=== PATIENT | female | born 1960 | race African-American/Black ===

== ENCOUNTER 2016-05-12 06:56 | Observation (INO) | payer OTHER ==
[~2016-05-12] VITALS: Ht 152.4 cm; Wt 90.0 kg
[2016-05-12] VITALS (10 sets, daily range): BP systolic 131–197; BP diastolic 77–93; PULSE 66–90; RESP 15–21; TEMP 96.7–98; O2SAT 95–99
[~2016-05-12 06:56] MED LIST: AMLO5TAB22 PO; OMEP20TA39 PO; PERC10TA27 PO; TRAZ100 PO
[2016-05-12] MEDS ORDERED: SODIUM CHLORIDE 0.9% FLUSH 5 ML FLUSH IVF PRN ×2 (07:30→11:30)
[2016-05-12] MEDS ORDERED: MORPHINE SULFATE 4 MG/ML INJ IV PUSH ONE (07:30)
[2016-05-12] MEDS ORDERED: ASPIRIN 81 MG CHEW TAB PO ONE (07:30)
[2016-05-12 07:45] LABS: AUTOMATED NEUTROPHIL # 4.4 TH/MM3 (1.8-7.7); BASOPHIL % 0.5 % (0.0-2.0); EOSINOPHIL # 0.1 TH/MM3 (0-0.4); EOSINOPHIL % 1.3 % (0.0-4.0); HEMATOCRIT 36.3 % (35.0-46.0); HEMO FLAGS DIFF FINAL; LYMPH % 24.4 % (9.0-44.0); LYMPHOCYTE # 1.6 TH/MM3 (1.0-4.8); MEAN CELL VOLUME 83.2 FL (80.0-100.0); MEAN CORPUSCULAR HEMOGLOBIN 26.5 PG (27.0-34.0); MEAN CORPUSCULAR HGB CONC 31.8 % (32.0-36.0); MONO % 7.2 % (0.0-8.0); NEUT % 66.6 % (16.0-70.0); PLATELET COUNT 205 TH/MM3 (150-450); RED BLOOD COUNT 4.36 MIL/MM3 (4.00-5.30); RED CELL DISTRIBUTION WIDTH 14.7 % (11.6-17.2); WHITE BLOOD COUNT 6.6 TH/MM3 (4.0-11.0)
[2016-05-12 08:04] LABS: APTT (PATIENT) 22.4 SEC (24.3-30.1); INTERNATIONAL NORMALIZED RATIO 0.9 RATIO; PROTHROMBIN TIME - PATIENT 10.1 SEC (9.8-11.6)
[2016-05-12 08:09] LABS: ALKALINE PHOSPHATASE 124 U/L (45-117); CREATINE KINASE 210 U/L (26-192); TOTAL BILIRUBIN ADULT 0.3 MG/DL (0.2-1.0)
[2016-05-12 08:14] LABS: ALT (GPT) 20 U/L (10-53); ANION GAP 9 MEQ/L (5-15); AST (GOT) 15 U/L (15-37); BICARBONATE 25.5 MEQ/L (21.0-32.0); BLOOD UREA NITROGEN 21 MG/DL (7-18); CHLORIDE 106 MEQ/L (98-107); GLOMERULAR FILTRATION RATE 85 ML/MIN (>89); MAGNESIUM 2.2 MG/DL (1.5-2.5); POTASSIUM 3.8 MEQ/L (3.5-5.1); SODIUM (NA) 140 MEQ/L (136-145)
[2016-05-12 08:46] LABS: CKMB 2.3 NG/ML (0.5-3.6)
--- NOTE | 2016-05-12 08:58 | RADRPT ---
EXAM DATE/TIME: 05/12/2016 07:58 [facility] COMPARISON: CHEST SINGLE AP, May 21, 2015, 6:51. INDICATIONS : Chest pain. MEDICAL HISTORY : Carcinoma, breast. SURGICAL HISTORY : Left lumpectomy. ENCOUNTER: Initial ACUITY: 1 day PAIN SCORE: 9/10 LOCATION: middle chest. FINDINGS: PA and lateral views of the chest demonstrate the lungs to be symmetrically aerated without evidence of mass, infiltrate or effusion. The cardiomediastinal contours are unremarkable. Osseous structure s are intact. CONCLUSION: 1. No acute cardiopulmonary findings. Alexis Willett MD on May 12, 2016 at 8:56 Board Certified Radiologist. This report was verified electronically.
--- NOTE | 2016-05-12 09:28 | PD ---
HPI Chief Complaint: Chest Pain Time Seen by Provider: 07:15 Travel History International Travel<30 days: No Contact w/Intl Traveler<30days: No Traveled to known affect area: No History of Present Illness HPI Patient is a 55-year-old female who comes in complaining of an episode of chest pain earlier this morning. She says she was not doing anything strenuous when the pain came on. She localizes the pain to the center of her chest and says it feels like a heaviness. She denies any shortness of breath at the time. She denies any leg swelling or pain. She denies headache or dizziness. PFSH Past Medical History Arthritis: Yes Cancer: Yes (HX BREAST CA- IN REMISSION SINCE 2013 ) High Cholesterol: Yes Diminished Hearing: No GERD: Yes Hypertension: Yes Musculoskeletal: Yes (ANKYLOSING SPONDYLITIS) Radiation Therapy: Yes (HISTORY ) ?: Not Menopausal: Yes : 6 Para: 4 : 2 Past Surgical History Abdominal Surgery: Yes (PART OF LARGE INTESTINE REMOVED) Hysterectomy: Yes Other Surgery: Yes (BILAT PLANTAR FASCIOTOMY; R ANKLE) Social History Alcohol Use: No Tobacco Use: No Substance Use: No Allergies-Medications (Allergen,Severity, Reaction): Coded Allergies: No Known Allergies (Unverified , 05/12/16) Reported Meds & Prescriptions Reported Meds & Active Scripts Active Reported Chlorthalidone 25 Mg Tab 25 Mg PO BID Sertraline (Sertraline HCl) 100 Mg Tab 100 Mg PO DAILY Folate (Folic Acid) 1 Mg Tab 1 Mg PO DAILY Losartan (Losartan Potassium) 25 Mg Tab 25 Mg PO DAILY Oxycodone-Acetaminophen 10-325 mg Tab 0.5-1 Tab PO Q8HR PRN Sulfasalazine 500 Mg Tab 1,000 Mg PO BID Pravastatin 40 Mg Tab 40 Mg PO DAILY Trazodone (Trazodone HCl) 100 Mg Tab 200 Mg PO HS Omeprazole 20 Mg Tab 20 Mg PO DAILY Amlodipine (Amlodipine Besylate) 5 Mg Tab 5 Mg PO DAILY Review of Systems Except as stated in HPI: all other systems reviewed are Neg General / Constitutional: No: Fever, Chills Eyes: No: Blurred Vision HENT: No: Headaches, Lightheadedness Cardiovascular: Positive: Chest Pain or Discomfort Respiratory: No: Cough, Shortness of Breath Gastrointestinal: No: Nausea, Vomiting Musculoskeletal: No: Edema Skin: No Rash, No Change in Pigmentation Neurologic: No: Weakness, Dizziness Physical Exam Narrative GENERAL: Awake and alert in no acute distress. SKIN: Warm and dry. HEAD: Atraumatic. Normocephalic. EYES: Pupils equal and round. No scleral icterus. ENT: Mucous membranes pink and moist. NECK: Trachea midline. No JVD. CARDIOVASCULAR: Regular rate and rhythm. No murmur appreciated. RESPIRATORY: No accessory muscle use. Clear to auscultation. Breath sounds equal bilaterally. GASTROINTESTINAL: Abdomen soft, non-tender, nondistended. MUSCULOSKELETAL: No obvious deformities. No clubbing. No cyanosis. No edema. NEUROLOGICAL: Awake and alert. No obvious cranial nerve deficits. Motor grossly within normal limits. Normal speech. PSYCHIATRIC: Appropriate mood and affect; insight and judgment normal. Data Data Last Documented VS Vital Signs Date Time Temp Pulse Resp B/P Pulse Ox O2 Delivery O2 Flow Rate FiO2 05/12/16 08:45 74 15 188/93 96 Nasal Cannula 2 05/12/16 07:02 97.9 Orders B-Type Natriuretic Peptide (05/12/16 07:22) Ckmb (Isoenzyme) Profile (05/12/16 07:22) Complete Blood Count With Diff (05/12/16 07:22) Comprehensive Metabolic Panel (05/12/16 07:22) Magnesium (Mg) (05/12/16 07:22) Prothrombin Time / Inr (Pt) (05/12/16 07:22) Act Partial Throm Time (Ptt) (05/12/16 07:22) Troponin I (05/12/16 07:22) Ecg Monitoring (05/12/16 07:22) Bilateral Bp Monitoring (05/12/16 07:22) Iv Access Insert/Monitor (05/12/16 07:22) Oximetry (05/12/16 07:22) Oxygen Administration (05/12/16 07:22) Aspirin Chew (Aspirin Chew) (05/12/16 07:30) Sodium Chloride 0.9% Flush (Ns Flush) (05/12/16 07:30) Chest, Pa & Lat (05/12/16 07:22) Morphine Inj (Morphine Inj) (05/12/16 07:30) CKMB (05/12/16 07:35) CKMB% (05/12/16 07:35) Admit Order (Ed Use Only) (05/12/16 ) Labs Laboratory Tests Test 05/12/16 07:35 White Blood Count 6.6 TH/MM3 Red Blood Count 4.36 MIL/MM3 Hemoglobin 11.6 GM/DL Hematocrit 36.3 % Mean Corpuscular Volume 83.2 FL Mean Corpuscular Hemoglobin 26.5 PG Mean Corpuscular Hemoglobin 31.8 % Concent Red Cell Distribution Width 14.7 % Platelet Count 205 TH/MM3 Mean Platelet Volume 8.3 FL Neutrophils (%) (Auto) 66.6 % Lymphocytes (%) (Auto) 24.4 % Monocytes (%) (Auto) 7.2 % Eosinophils (%) (Auto) 1.3 % Basophils (%) (Auto) 0.5 % Neutrophils # (Auto) 4.4 TH/MM3 Lymphocytes # (Auto) 1.6 TH/MM3 Monocytes # (Auto) 0.5 TH/MM3 Eosinophils # (Auto) 0.1 TH/MM3 Basophils # (Auto) 0.0 TH/MM3 CBC Comment DIFF FINAL Differential Comment Prothrombin Time 10.1 SEC Prothromb Time International 0.9 RATIO Ratio Activated Partial 22.4 SEC Thromboplast Time Sodium Level 140 MEQ/L Potassium Level 3.8 MEQ/L Chloride Level 106 MEQ/L Carbon Dioxide Level 25.5 MEQ/L Anion Gap 9 MEQ/L Blood Urea Nitrogen 21 MG/DL Creatinine 0.85 MG/DL Estimat Glomerular Filtration 85 ML/MIN Rate Random Glucose 88 MG/DL Calcium Level 8.6 MG/DL Magnesium Level 2.2 MG/DL Total Bilirubin 0.3 MG/DL Aspartate Amino Transf 15 U/L (AST/SGOT) Alanine Aminotransferase 20 U/L (ALT/SGPT) Alkaline Phosphatase 124 U/L Total Creatine Kinase 210 U/L Creatine Kinase MB 2.3 NG/ML Creatine Kinase MB % 1.1 % Troponin I LESS THAN 0.02 NG/ML B-Type Natriuretic Peptide 18 PG/ML Total Protein 7.6 GM/DL Albumin 3.2 GM/DL [facility] Medical Decision Making Medical Screen Exam Complete: Yes Emergency Medical Condition: Yes Medical Record Reviewed: Yes Interpretation(s) ECG shows NSR, no ST elevation or depression. Differential Diagnosis ACS, NSTEMI, STEMI Narrative Course Patient is a 55-year-old female who comes in complaining of chest pain. Exam shows no acute abnormalities. IV established, patient connected to quality assurance monitor. Patient given 162 mg of aspirin, she says she took it could be powder that might of had aspirin in it earlier today. Labs sent show no acute abnormalities. Chest x-ray shows no acute abnormalities. Patient will be placed in chest pain center for further management. Diagnosis Primary Impression: Atypical chest pain Admitting Information Admitting Physician Requests: Susana Chávez MD May 12, 2016 09:28
[2016-05-12] MEDS ORDERED: OMEP20TA PO (10:18)
[2016-05-12] MEDS ORDERED: AMLO5TAB2 PO (10:18)
[2016-05-12] MEDS ORDERED: TRAZ100T4 PO (10:18)
[2016-05-12] MEDS ORDERED: OXYC1TAB63 PO (10:18)
[2016-05-12] MEDS ORDERED: PRAV40TA2 PO (10:21)
[2016-05-12] MEDS ORDERED: FOLI5CAP PO (10:21)
[2016-05-12] MEDS ORDERED: SULF500T3 PO (10:21)
[2016-05-12] MEDS ORDERED: OXYC1TAB36 PO (11:28)
[2016-05-12] MEDS ORDERED: LOSA25TA PO (11:28)
[2016-05-12] MEDS ORDERED: ACETAMINOPHEN 500 MG CPLT PO PRN (11:30)
[2016-05-12] MEDS ORDERED: ONDANSETRON HCL 4 MG/2 ML VIAL IV PRN (11:30)
[2016-05-12] MEDS ORDERED: KETOROLAC TROMETHAMINE 30 MG/ML (IVP) VIAL IVP ONE (11:30)
[2016-05-12] MEDS ORDERED: SERT-129 PO (11:31)
[2016-05-12] MEDS ORDERED: CHLO25TA2 PO (11:31)
[2016-05-12] MEDS ORDERED: FOLI1TAB4 PO (11:31)
[2016-05-12] MEDS: PRAVASTATIN SOD 40 MG TAB PO SCH (11:52)
[2016-05-12] MEDS: PANTOPRAZOLE SOD 20 MG DELAYED RELEASE TAB PO SCH (11:52)
[2016-05-12] MEDS: amLODIPine BESYLATE 5 MG TAB PO SCH (11:52)
[2016-05-12] MEDS ORDERED: SODIUM CHLOR 0.9% 1000 ML INJ 1,000 ML IV SCH (11:54)
[2016-05-12] MEDS ORDERED: cloNIDine HCL 0.1 MG TAB PO PRN (12:00)
[2016-05-12] MEDS: NITROGLYCERIN 2% OINT 1 GM PACKET TOPICAL SCH ×2 (12:52→17:55)
[2016-05-12] MEDS ORDERED: LOSARTAN 25 MG TAB PO SCH (13:00)
[2016-05-12 14:24] LABS: CREATINE KINASE 175 U/L (26-192)
[2016-05-12] MEDS ORDERED: PILL SPLITTER OTHER PRN (14:30)
[2016-05-12 14:40] LABS: CKMB 2.2 NG/ML (0.5-3.6)
[2016-05-12] MEDS: CHLORTHALIDONE 50 MG TAB PO SCH (14:40)
--- NOTE | 2016-05-12 17:00 | EKG ---
Date Performed: 05/12/2016 Time Performed: 07:11:39 PTAGE: 55 years EKG: Sinus rhythm NORMAL ECG Since PREVIOUS TRACING , no significant change noted PREVIOUS TRACIN05/21/2015 06.39 DOCTOR: Kirsty Rosales Interpretating Date/Time 05/12/2016 16:58:08
[2016-05-12] MEDS: oxyCODONE/ACETAMINOPHEN 5 MG/325 MG TAB PO PRN (17:55)
[2016-05-12] MEDS: SODIUM CHLORIDE 0.9% FLUSH 5 ML FLUSH IVF SCH (21:00)
[2016-05-12] MEDS ORDERED: traZODone HCL 100 MG TAB PO SCH (21:00)
[2016-05-13] VITALS (9 sets, daily range): BP systolic 108–138; BP diastolic 61–78; PULSE 57–78; RESP 18–21; TEMP 96.4–98.3; O2SAT 97–98
[2016-05-13] MEDS: CHLORTHALIDONE 50 MG TAB PO SCH ×2 (00:40→10:29)
[2016-05-13] MEDS: NITROGLYCERIN 2% OINT 1 GM PACKET TOPICAL SCH ×2 (03:32)
[2016-05-13] MEDS: oxyCODONE/ACETAMINOPHEN 5 MG/325 MG TAB PO PRN ×2 (06:48→10:37)
--- NOTE | 2016-05-13 08:24 | MH ---
cc: CHRISTELLE ROSE MD DATE OF ADMISSION: 05/12/2016 DATE OF 1960 CHIEF COMPLAINT Chest pain. HISTORY OF PRESENT ILLNESS This is a 55-year-old female who presents to the ED with complaint of chest discomfort. She states that while at work today she went to use the bathroom at around 6 o'clock to have a bowel movement. She states she had a normal bowel movement but when she went to stand up she got dizzy and developed heaviness in the center of her chest. It was a 9/10. The higher event lasted about 7 or 8 minutes but then it tapered down and continues to be persisting to this point as about a 2/10. She is mildly short of breath; no nausea or diaphoresis. She had a similar episode in February but did not seek treatment. She also had a similar episode of reproducible chest discomfort in May of last year and was discharged. Her last stress test she believes was about 2 years or so ago in [place] and believes it was normal. She states she has to take a chemical stress test as she has a bad back and has arthritis knees and feet. She denies any recent illnesses. Denies fevers or chills. PAST MEDICAL HISTORY 1. Hypertension. 2. Hyperlipidemia. 3. Gastroesophageal reflux disease. 4. Anemia. 5. Chronic back pain. PAST SURGICAL HISTORY 1. Hysterectomy. 2. Partial colectomy. 3. Surgery on her feet for chronic fasciitis. 4. Ankle surgery. ALLERGIES No known drug allergies. MEDICATIONS 1. Losartan. 2. Sertraline. 3. Trazodone. 4. Amlodipine. 5. Pravastatin. 6. Oxycodone. 7. Omeprazole. 8. Sulfasalazine. 9. Chlorthalidone. 10. Folic acid. REVIEW OF SYSTEMS GENERAL: Denies fever or chills. Denies recent illnesses. HEENT: Denies headache, earache, sore throat, difficulty swallowing. CARDIOVASCULAR: Describes the discomfort as mentioned above. Denies diaphoresis. Denies sensation of heart beating rapidly or irregularly. Denies syncope. RESPIRATORY: She was mildly short of breath. Denies inspirational chest discomfort. Denies coughing, wheezing or hemoptysis. GI: Denies nausea, vomiting, diarrhea, abdominal pain or blood in the stool. MUSCULOSKELETAL: She has chronic bilateral knee and feet pain. She also has chronic back pain. She denies calf pain or swelling. NEUROVASCULAR: Denies headache but felt a little dizzy when she went to stand up from sitting on the commode. Denies numbness, tingling or weakness in the extremities. ENDOCRINE: Denies polyuria or polydipsia. HEMATOLOGIC: Denies bruising. SKIN: Denies rash or itching. PHYSICAL EXAMINATION VITAL SIGNS: In the emergency department initially included a blood pressure of 151/92, heart rate of 70, respiratory rate 18, pulse oximetry 98% on room air and she was afebrile. The most recent vital signs include a blood pressure of 162/85, heart rate 90, respiratory rate 15, pulse oximetry is 97% on room air. GENERAL: The patient is seen in the exam room in no apparent distress. She is very pleasant. She speaks in clear and complete sentences. HEENT: Head is atraumatic and normocephalic. NECK: Supple without lymphadenopathy. Trachea is midline. No JVD or carotid bruits. CARDIOVASCULAR: Regular rate and rhythm without murmur, gallop or rub. RESPIRATORY: Lungs are clear to auscultation bilaterally. No wheezes, rales or rhonchi. There is no use of accessory muscles. There is a rather easily reproducible discomfort over the inferior aspect of the sternum. It is similar to the discomfort she is having. GI: Abdomen is nontender, nondistended. Bowel sounds are normal. No guarding or rebound. No obvious pulsatile mass or bruit. No CVA tenderness. Strong femoral pulses bilaterally. MUSCULOSKELETAL: The patient is moving upper and lower extremities freely. No joint tenderness or edema. No calf tenderness or edema. No Niko's sign. Strong pulses in the upper and lower extremities. NEUROVASCULAR: The patient is alert and oriented. Cranial nerves II through XII are grossly intact. There are no focal deficits and speech is clear. SKIN: No rashes and turgor is normal. LABS CBC is unremarkable. Coagulation studies are unremarkable. Complete metabolic panel essentially is unremarkable. GFR is decreased at 85, BUN mildly elevated at 21. First set of cardiac enzymes normal. BNP is normal at 18. X-RAYS PA and lateral chest x-ray read by radiologist as no acute cardiopulmonary findings. EKG Initial EKG with sinus rhythm, rate of [address] segment depression or elevation. ASSESSMENT 1. Chest pain: The patient will have serial cardiac enzymes and EKGs for ruling out purposes. The plan will be determined by Dr. Rose's evaluation. 2. Hypertension: The patient took her medication last night. We will give her more amlodipine at this time. We will continue to monitor. Will have Catapres p.r.n. 3. Hyperlipidemia: Continue current medications. 4. GERD: Continue current medication. The patient is stable at this time. She is agreeable to this plan. Dictated by: Hiren Santana PA-C Denis Landaverde/CÉSAR /11:42 AM /8:23 AM
[2016-05-13] MEDS ORDERED: LOSARTAN 25 MG TAB PO SCH (09:00)
[2016-05-13] MEDS ORDERED: SERTRALINE HCL 100 MG TAB PO SCH (09:00)
[2016-05-13] MEDS: SODIUM CHLORIDE 0.9% FLUSH 5 ML FLUSH IVF SCH (09:00)
[2016-05-13] MEDS ORDERED: FOLIC ACID 1 MG TAB PO SCH (09:00)
[2016-05-13] MEDS ORDERED: REGADENOSON INJ 0.4 MG/5 ML SYR ONE (09:26)
[2016-05-13] MEDS: PANTOPRAZOLE SOD 20 MG DELAYED RELEASE TAB PO SCH (10:30)
[2016-05-13] MEDS: amLODIPine BESYLATE 5 MG TAB PO SCH (10:30)
[2016-05-13] MEDS: PRAVASTATIN SOD 40 MG TAB PO SCH (10:31)
--- NOTE | 2016-05-13 11:10 | RADRPT ---
EXAM DATE/TIME: 05/13/2016 08:49 [facility] COMPARISON: No previous studies available for comparison. INDICATIONS : Midsternal chest pain for 1 day. Angina. DOSE: 25.7 mCi Tc99m Myoview at stress. 8.2 mCi Tc99m Myoview at rest. 0.4 mg Lexiscan STRESS SYMPTOMS: Dyspnea. EJECTION FRACTION: 53% MEDICAL HISTORY : Carcinoma, breast. Hypertension. SURGICAL HISTORY : Hysterectomy. Colon resection. Mastectomy, left. ENCOUNTER: Initial ACUITY: 1 day PAIN SCALE: 3/10 LOCATION: Midsternal chest TECHNIQUE: The patient underwent pharmacologic stress with infusion of prescribed dose. Continuous ECG tracing was monitored during stress. Gated SPECT imaging was performed after stress and conventional SPECT i maging was performed at rest. The examination was performed on a SPECT/CT scanner, both attenuation and non-corrected datasets were reviewed. FINDINGS: DISTRIBUTION: The maximum perfused segment at stress is in the septal wall. PERFUSION STUDY: The pattern of perfusion at stress is within normal limits. GATED STUDY: There is intact wall motion and thickening without hypokinetic or dyskinetic segments. CONCLUSION: 1. No significant reversibility to suggest ischemia. 2. Normal wall motion with ejection fraction 53%. RISK CATEGORY: Low (<1% Annual Mortality Rate) Prasanth Valadez MD on May 13, 2016 at 11:05 Board Certified Radiologist. This report was verified electronically.
--- NOTE | 2016-05-13 11:28 | HHI.DCPOC ---
Discharge Care Plan Diagnosis: (1) Chest pain (2) Hypertension (3) Hyperlipidemia (4) GERD (gastroesophageal reflux disease) Goals to Promote Your Health * To prevent worsening of your condition and complications * To maintain your health at the optimal level Directions to Meet Your Goals Take your medications as prescribed Follow your dietary instruction Follow activity as directed Keep your appointments as scheduled Take your immunizations and boosters as scheduled If your symptoms worsen call your PCP, if no PCP go to Urgent Care Center or Emergency Room Smoking is Dangerous to Your Health. Avoid second hand smoke Call the 24-hour hour crisis hotline for domestic abuse at Dilip Santana May 13, 2016 11:28
--- NOTE | 2016-05-13 15:28 | EKG ---
Date Performed: 05/12/2016 Time Performed: 13:26:19 PTAGE: 55 years EKG: Sinus rhythm NORMAL ECG PREVIOUS TRACING : 05/12/2016 11.20 Since previous tracing, no significant change noted DOCTOR: Kye Bonilla Interpretating Date/Time 05/13/2016 15:28:06
--- NOTE | 2016-05-13 15:29 | EKG ---
Date Performed: 05/12/2016 Time Performed: 11:20:28 PTAGE: 55 years EKG: Sinus rhythm NORMAL ECG PREVIOUS TRACING : 05/12/2016 07.11 Since previous tracing, no significant change noted DOCTOR: Kye Bonilla Interpretating Date/Time 05/13/2016 15:29:20
--- NOTE | 2016-05-13 15:35 | TR ---
Date Performed: 05/13/2016 Time Performed: 09:19:14 DOCTOR: Kye Bonilla DRUG LIST: CLINICAL HISTORY: CHEST PAIN REASON FOR TEST: CHEST PAIN REASON FOR ENDING: OBSERVATION: CONCLUSION: Lexiscan stress test was performed under standard four minute protocol. Radionuclid e was injected one minute prior to ending the test. No electrocardiographic abormalities were present to suggest ischemia. Nuclear imaging and interpretation are pending. COMMENTS:
== END 2016-05-13 12:13 | disposition home or self-care (01) ==
LOC: NEPE 06:56 → NEDA 09:29 → NEPFCDU 13:01
PROVIDERS: ADMIT Internal Medicine Interventional Cardiology; ATTEND Internal Medicine Interventional Cardiology
DX: R07.89 Other chest pain (principal); Z85.3 Personal history of malignant neoplasm of breast; E78.00 Pure hypercholesterolemia, unspecified; K21.9 Gastro-esophageal reflux disease without esophagitis; I10 Essential (primary) hypertension; M45.9 Ankylosing spondylitis of unspecified sites in spine; Z79.899 Other long term (current) drug therapy; E78.5 Hyperlipidemia, unspecified; D64.9 Anemia, unspecified; M54.9 Dorsalgia, unspecified; G89.29 Other chronic pain
CPT/HCPCS: 71020; 78452; 80053; 82550; 82552; 83735; 83880; 84484; 85025; 85610; 85730; 93005; 93017; 99285; A9502; G0378; J2270; J2785; J7030

== ENCOUNTER 2016-06-10 13:23 | Emergency (ER) | payer OTHER ==
[~2016-06-10] VITALS: Ht 152.4 cm; Wt 84.0 kg
[~2016-06-10 13:23] MED LIST changes: +AMLO5TAB2 PO; -AMLO5TAB22 PO; +CHLO25TA2 PO; +FOLI1TAB4 PO; +LOSA25TA PO; +OMEP20TA PO; -OMEP20TA39 PO; +OXYC1TAB36 PO; -PERC10TA27 PO; +PRAV40TA2 PO; +SERT-129 PO; +SULF500T3 PO; -TRAZ100 PO; +TRAZ100T4 PO
[2016-06-10 13:33] VITALS: BP 128/80; PULSE 78; RESP 16; TEMP 98.8; O2SAT 98
[2016-06-10] MEDS ORDERED: BACL10TA PO (13:42)
[2016-06-10] MEDS ORDERED: IBUP800T23 PO (13:42)
[2016-06-10] MEDS ORDERED: CYCL5TAB PO (13:43)
--- NOTE | 2016-06-10 14:08 | PD ---
HPI Chief Complaint: Chest Pain Time Seen by Provider: 14:03 Travel History International Travel<30 days: No Contact w/Intl Traveler<30days: No Traveled to known affect area: No History of Present Illness HPI 56-year-old female that presents to the ED for evaluation of right-sided chest pain. Per patient she's had this chest pain since around 12:00. Per patient she has had chest pain since February. Per patient he comes and goes. Patient was seen here less than a couple weeks ago for evaluation of the same and had a stress test that was negative. Patient states that she saw her doctor yesterday who recommended follow-up with center medical and lab director for reevaluation and she has not been able to follow up yet. Per patient the pain feels like a pressure. Per patient he had some shortness of breath. She does have a history of breast cancer in the past about 3 years ago and states that she also has a history of ankylosing spondylitis. Per patient she takes baclofen for it. Per patient she was having some pain from her rheumatological disease and she took some baclofen. Per patient after she took the baclofen that is when the pain started. Per patient she has noted that this seems to happen when the pain starts. Per patient she takes her medication and it causes the chest discomfort. She denies any history of diabetes but she does have a history of high blood pressure. Per patient she's been out of her amlodipine today. Per patient she has just not picked it up from the pharmacy. She has any headache. No blurry vision or double vision. No nausea or vomiting. No abdominal pain. Per patient she is in remission for her breast cancer for the past 3 years. Pain per patient is 7 out of 10. She has not taken anything for this. PFSH Past Medical History Arthritis: Yes Heart Rhythm Problems: No Cancer: Yes (HX BREAST CA- IN REMISSION SINCE 2013 ) Cardiac Catheterization: No High Cholesterol: Yes Congestive Heart Failure: No Diabetes: No Diminished Hearing: No GERD: Yes Hypertension: Yes Musculoskeletal: Yes (ANKYLOSING SPONDYLITIS) Radiation Therapy: Yes (HISTORY ) ?: Not Menopausal: Yes : 6 Para: 4 : 2 Past Surgical History Abdominal Surgery: Yes (PART OF LARGE INTESTINE REMOVED) Coronary Artery Bypass Graft: No Hysterectomy: Yes Other Surgery: Yes (BILAT PLANTAR FASCIOTOMY; R ANKLE) Social History Alcohol Use: No Tobacco Use: No Substance Use: No Allergies-Medications (Allergen,Severity, Reaction): Coded Allergies: No Known Allergies (Unverified , 06/10/16) Reported Meds & Prescriptions Reported Meds & Active Scripts Active Tramadol (Tramadol HCl) 50 Mg Tab 50 Mg PO Q6H PRN Reported Flexeril (Cyclobenzaprine HCl) Unknown Strength Tab Unknown Dose PO TID Baclofen 10 Mg Tab 10 Mg PO TID PRN Ibuprofen 800 Mg Tab 800 Mg PO BID Chlorthalidone 25 Mg Tab 25 Mg PO BID Sertraline (Sertraline HCl) 100 Mg Tab 100 Mg PO DAILY Folate (Folic Acid) 1 Mg Tab 1 Mg PO DAILY Losartan (Losartan Potassium) 25 Mg Tab 25 Mg PO DAILY Oxycodone-Acetaminophen 10-325 mg Tab 0.5-1 Tab PO Q8HR PRN Sulfasalazine 500 Mg Tab 1,000 Mg PO BID Pravastatin 40 Mg Tab 40 Mg PO DAILY Trazodone (Trazodone HCl) 100 Mg Tab 200 Mg PO HS Omeprazole 20 Mg Tab 20 Mg PO DAILY Amlodipine (Amlodipine Besylate) 5 Mg Tab 5 Mg PO DAILY Review of Systems Except as stated in HPI: all other systems reviewed are Neg Physical Exam Narrative GENERAL: SKIN: Warm and dry. HEAD: Atraumatic. Normocephalic. EYES: Pupils equal and round. No scleral icterus. No injection or drainage. ENT: No nasal bleeding or discharge. Mucous membranes pink and moist. Tongue is midline. No uvula deviation. NECK: Trachea midline. No JVD. CARDIOVASCULAR: Regular rate and rhythm. No murmurs, S3, S4. Chest pain is not reproducible with touch. RESPIRATORY: No accessory muscle use. Clear to auscultation. Breath sounds equal bilaterally. GASTROINTESTINAL: Abdomen soft, non-tender, nondistended. Hepatic and splenic margins not palpable. MUSCULOSKELETAL: Extremities without clubbing, cyanosis, or edema. No obvious deformities. Full range of motion of the upper and lower extremities bilaterally. 2+ pulses bilaterally. NEUROLOGICAL: Awake and alert. No obvious cranial nerve deficits. Motor grossly within normal limits. Five out of 5 muscle strength in the arms and legs. Normal speech. PSYCHIATRIC: Appropriate mood and affect; insight and judgment normal. Data Data Last Documented VS Vital Signs Date Time Temp Pulse Resp B/P Pulse Ox O2 Delivery O2 Flow Rate FiO2 06/10/16 14:40 16 97 Room Air Orders Complete Blood Count With Diff (06/10/16 13:58) Basic Metabolic Panel (Bmp) (06/10/16 13:58) Ckmb (Isoenzyme) Profile (06/10/16 13:58) Troponin I (06/10/16 13:58) D-Dimer (06/10/16 13:58) Magnesium (Mg) (06/10/16 13:58) Chest, Single Ap (06/10/16 13:58) Iv Access Insert/Monitor (06/10/16 13:58) Ecg Monitoring (06/10/16 13:58) Oximetry (06/10/16 13:58) Aspirin (Aspirin) (06/10/16 14:15) CKMB (06/10/16 14:40) CKMB% (06/10/16 14:40) Sodium Chlor 0.9% 1000 Ml Inj (Ns 1000 M (06/10/16 15:31) Acetaminophen (Tylenol) (06/10/16 15:45) Labs Laboratory Tests Test 06/10/16 14:40 White Blood Count 9.0 TH/MM3 Red Blood Count 4.44 MIL/MM3 Hemoglobin 11.8 GM/DL Hematocrit 36.9 % Mean Corpuscular Volume 83.1 FL Mean Corpuscular Hemoglobin 26.5 PG Mean Corpuscular Hemoglobin 31.9 % Concent Red Cell Distribution Width 14.7 % Platelet Count 224 TH/MM3 Mean Platelet Volume 8.4 FL Neutrophils (%) (Auto) 71.6 % Lymphocytes (%) (Auto) 18.5 % Monocytes (%) (Auto) 8.8 % Eosinophils (%) (Auto) 0.5 % Basophils (%) (Auto) 0.6 % Neutrophils # (Auto) 6.4 TH/MM3 Lymphocytes # (Auto) 1.7 TH/MM3 Monocytes # (Auto) 0.8 TH/MM3 Eosinophils # (Auto) 0.0 TH/MM3 Basophils # (Auto) 0.0 TH/MM3 CBC Comment DIFF FINAL Differential Comment D-Dimer Quantitative (PE/DVT) 1.26 MG/L FEU Sodium Level 138 MEQ/L Potassium Level 3.3 MEQ/L Chloride Level 104 MEQ/L Carbon Dioxide Level 28.8 MEQ/L Anion Gap 5 MEQ/L Blood Urea Nitrogen 43 MG/DL Creatinine 1.48 MG/DL Estimat Glomerular Filtration 44 ML/MIN Rate Random Glucose 91 MG/DL Calcium Level 8.9 MG/DL Magnesium Level 2.3 MG/DL Total Creatine Kinase 207 U/L Creatine Kinase MB 1.9 NG/ML Creatine Kinase MB % 0.9 % Troponin I 0.02 NG/ML MDM Medical Decision Making Medical Screen Exam Complete: Yes Emergency Medical Condition: Yes Medical Record Reviewed: Yes Interpretation(s) EKG shows sinus rhythm with no sign of acute ischemia or arrhythmia read by me and attending. CBC & BMP Diagram 06/10/16 14:40 CXR negative d-dimmer slightly elevated Ck elevated troponin negative Differential Diagnosis Chest pain versus a typical chest pain versus noncardiac chest pain versus medication side effect versus PE versus costochondritis Narrative Course 56-year-old female that presents to the ED for evaluation of chest pain. Patient was properly examined and was found to have signs and symptoms of unclear etiology. Some concern for ACS secondary to her risk factors but she just had a stress test that was negative. We'll do initial EKG and troponin although I believe this is noncardiac at this time and this is likely a typical chest pain. PE workup will be done with d-dimer as this is the only thing I have not seen been done before. Labs and imaging were ordered. Labs and imaging did show elevated BUN and creatinine from prior so fluid was given. Patient also had a slightly positive d-dimer. Case was discussed with my attending Dr. Gomez who states that patient can be safely discharged home and he does not recommend CT imaging at this time. Patient was told results. Patient was told to stop taking anti-inflammatories and follow up closely with PCP. Follow up with center medical and lab director. Patient was given prescription for tramadol for pain to use for her ankylosing spondylitis on her chest pain. Patient was told to take Tylenol products. She agrees with plan. Follow-up with PCP. See ED worsening symptoms. Diagnosis Primary Impression: Atypical chest pain Additional Impression: Kidney disease Patient Instructions: General Instructions Additional Instructions: Take tylenol for pain. Avoid baclofen for pain until f/u with PCP. See ED if worsening symptoms. F/u with center medical and lab director. Med/Other Pt SpecificInfo: No Change to Meds Scripts Tramadol 50 Mg Tab50 Mg PO Q6H PRN (PAIN) #15 TAB Ref 0 Prov:Ridge Gomez MD 06/10/16 Disposition: 01 DISCHARGE HOME Condition: [place] Lr Jun 10, 2016 14:08
[2016-06-10] MEDS ORDERED: ASPIRIN 325 MG TAB PO ONE (14:15)
[2016-06-10 14:40] VITALS: RESP 16; O2SAT 97
[2016-06-10 14:50] LABS: AUTOMATED NEUTROPHIL # 6.4 TH/MM3 (1.8-7.7); BASOPHIL % 0.6 % (0.0-2.0); EOSINOPHIL % 0.5 % (0.0-4.0); HEMATOCRIT 36.9 % (35.0-46.0); HEMO FLAGS DIFF FINAL; LYMPH % 18.5 % (9.0-44.0); LYMPHOCYTE # 1.7 TH/MM3 (1.0-4.8); MEAN CELL VOLUME 83.1 FL (80.0-100.0); MEAN CORPUSCULAR HEMOGLOBIN 26.5 PG (27.0-34.0); MEAN CORPUSCULAR HGB CONC 31.9 % (32.0-36.0); MONO % 8.8 % (0.0-8.0); NEUT % 71.6 % (16.0-70.0); PLATELET COUNT 224 TH/MM3 (150-450); RED BLOOD COUNT 4.44 MIL/MM3 (4.00-5.30); RED CELL DISTRIBUTION WIDTH 14.7 % (11.6-17.2)
[2016-06-10 15:22] LABS: BICARBONATE 28.8 MEQ/L (21.0-32.0); MAGNESIUM 2.3 MG/DL (1.5-2.5); POTASSIUM 3.3 MEQ/L (3.5-5.1)
--- NOTE | 2016-06-10 15:23 | RADRPT ---
EXAM DATE/TIME: 06/10/2016 14:24 [facility] COMPARISON: CHEST SINGLE AP, May 21, 2015, 6:51. INDICATIONS: Chest pain. MEDICAL HISTORY: Carcinoma, breast. SURGICAL HISTORY: None. ENCOUNTER: Initial ACUITY: 2 days PAIN SCORE: 5/10 LOCATION: Bilateral chest FINDINGS: Lungs are under aerated but clear. Heart is minimally enlarged. Pulmonary vascularity is normal. P ortion of bony skeleton visualized unremarkable. CONCLUSION: Under aerated, otherwise negative. Dinesh Willett MD FACR on June 10, 2016 at 14:50 Board Certified Radiologist. This report was verified electronically.
[2016-06-10] MEDS ORDERED: SODIUM CHLOR 0.9% 1000 ML INJ 1,000 ML IV SCH (15:31)
[2016-06-10 15:35] VITALS: BP 120/76; PULSE 74; RESP 16; O2SAT 98
[2016-06-10 15:37] LABS: CKMB 1.9 NG/ML (0.5-3.6)
[2016-06-10] MEDS ORDERED: ACETAMINOPHEN 325 MG TAB PO ONE (15:45)
[2016-06-10] MEDS ORDERED: TRAM50TA PO (16:02)
--- NOTE | 2016-06-10 16:09 | PD ---
Data Data Last Documented VS Vital Signs Date Time Temp Pulse Resp B/P Pulse Ox O2 Delivery O2 Flow Rate FiO2 06/10/16 14:40 16 97 Room Air Orders Complete Blood Count With Diff (06/10/16 13:58) Basic Metabolic Panel (Bmp) (06/10/16 13:58) Ckmb (Isoenzyme) Profile (06/10/16 13:58) Troponin I (06/10/16 13:58) D-Dimer (06/10/16 13:58) Magnesium (Mg) (06/10/16 13:58) Chest, Single Ap (06/10/16 13:58) Iv Access Insert/Monitor (06/10/16 13:58) Ecg Monitoring (06/10/16 13:58) Oximetry (06/10/16 13:58) Aspirin (Aspirin) (06/10/16 14:15) CKMB (06/10/16 14:40) CKMB% (06/10/16 14:40) Sodium Chlor 0.9% 1000 Ml Inj (Ns 1000 M (06/10/16 15:31) Acetaminophen (Tylenol) (06/10/16 15:45) Labs Laboratory Tests Test 06/10/16 14:40 White Blood Count 9.0 TH/MM3 Red Blood Count 4.44 MIL/MM3 Hemoglobin 11.8 GM/DL Hematocrit 36.9 % Mean Corpuscular Volume 83.1 FL Mean Corpuscular Hemoglobin 26.5 PG Mean Corpuscular Hemoglobin 31.9 % Concent Red Cell Distribution Width 14.7 % Platelet Count 224 TH/MM3 Mean Platelet Volume 8.4 FL Neutrophils (%) (Auto) 71.6 % Lymphocytes (%) (Auto) 18.5 % Monocytes (%) (Auto) 8.8 % Eosinophils (%) (Auto) 0.5 % Basophils (%) (Auto) 0.6 % Neutrophils # (Auto) 6.4 TH/MM3 Lymphocytes # (Auto) 1.7 TH/MM3 Monocytes # (Auto) 0.8 TH/MM3 Eosinophils # (Auto) 0.0 TH/MM3 Basophils # (Auto) 0.0 TH/MM3 CBC Comment DIFF FINAL Differential Comment D-Dimer Quantitative (PE/DVT) 1.26 MG/L FEU Sodium Level 138 MEQ/L Potassium Level 3.3 MEQ/L Chloride Level 104 MEQ/L Carbon Dioxide Level 28.8 MEQ/L Anion Gap 5 MEQ/L Blood Urea Nitrogen 43 MG/DL Creatinine 1.48 MG/DL Estimat Glomerular Filtration 44 ML/MIN Rate Random Glucose 91 MG/DL Calcium Level 8.9 MG/DL Magnesium Level 2.3 MG/DL Total Creatine Kinase 207 U/L Creatine Kinase MB 1.9 NG/ML Creatine Kinase MB % 0.9 % Troponin I 0.02 NG/ML [facility] Supervised Visit with WALTER: Yes Narrative Course The history, exam, and medical decision-making in the associated mid-level provider note were completed with my assistance. I reviewed and agree with the findings presented. I attest that I had a [id number] encounter with the patient on the same day, and personally performed and documented my assessment and findings in the medical record. *My assessment and Findings: 56-year-old woman with recurrent right sided chest wall pain. She looks well. She's had several episodes of this. Previous workups of been negative. I don' t think she has a PE. I instructed Akash not to pursue the diagnosis even though she has a mildly elevated d-dimer. She looks well now. Recommend supportive treatment outpatient follow-up. Diagnosis Primary Impression: Atypical chest pain Additional Impression: Kidney disease Patient Instructions: General Instructions Additional Instruction: Take tylenol for pain. Avoid baclofen for pain until f/u with PCP. See ED if worsening symptoms. 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 Scripts Tramadol 50 Mg Tab50 Mg PO Q6H PRN (PAIN) #15 TAB Ref 0 Prov:Ridge Gomez MD 06/10/16 Disposition: 01 DISCHARGE HOME Condition: Stable Ridge Gomez MD Jun 10, 2016 16:09
--- NOTE | 2016-06-12 07:08 | EKG ---
Date Performed: 06/10/2016 Time Performed: 13:36:26 PTAGE: 56 years EKG: Sinus rhythm MODERATE VOLTAGE CRITERIA FOR LVH, CONSIDER NORMAL VARIANT NONSPECIFIC T-WAVE ABNORMALITY BORDERLINE ECG PREVIOUS TRACING : 05/12/2016 13.26 DOCTOR: Gutierrez Cunningham Interpretating Date/Time 06/12/2016 07:05:05
== END 2016-06-10 16:33 | disposition home or self-care (01) ==
LOC: NEPE 13:23
DX: R07.89 Other chest pain (principal); R06.02 Shortness of breath; M45.9 Ankylosing spondylitis of unspecified sites in spine; I10 Essential (primary) hypertension; K21.9 Gastro-esophageal reflux disease without esophagitis; Z79.899 Other long term (current) drug therapy; Z85.3 Personal history of malignant neoplasm of breast
CPT/HCPCS: 71010; 80048; 82550; 82552; 83735; 84484; 85025; 85379; 93005; 99285

== ENCOUNTER 2016-07-20 10:49 | Emergency (ER) | payer OTHER ==
[~2016-07-20] VITALS: Ht 152.4 cm; Wt 85.5 kg
[~2016-07-20 10:49] MED LIST changes: +BACL10TA PO; +CYCL5TAB PO; +IBUP800T23 PO; +TRAM50TA PO
[2016-07-20 10:52] VITALS: BP 133/77; PULSE 91; RESP 17; TEMP 98.2; O2SAT 95
[2016-07-20 11:00] VITALS: BP 133/72; PULSE 82; PULSE 84; RESP 18; O2SAT 99
--- NOTE | 2016-07-20 11:01 | PD ---
HPI Chief Complaint: Complaint Time Seen by Provider: 11:00 Travel History International Travel<30 days: No Contact w/Intl Traveler<30days: No Traveled to known affect area: No History of Present Illness HPI 56-year-old female came to the emergency room with history of abdominal pain suprapubic mostly. Patient says she also has some burning sensation however this time it's little different than her usual dysuria from UTI. She went to see her primary care yesterday and was given ciprofloxacin for possible UTI even though the UA there was negative. She is in distress and did not feel better and hence she is here. Vital signs were stable. No radiation of the pain anywhere else. No associated nausea or vomiting. No aggravating or relieving factor. PFSH Past Medical History Narrative Medical List of her past medical, surgical, social and family history is reviewed from the nursing note. Arthritis: Yes Heart Rhythm Problems: No Cancer: Yes (HX BREAST CA- IN REMISSION SINCE 2013 ) Cardiac Catheterization: No High Cholesterol: Yes Congestive Heart Failure: No Diabetes: No Diminished Hearing: No GERD: Yes Hypertension: Yes Musculoskeletal: Yes (ANKYLOSING SPONDYLITIS) Radiation Therapy: Yes (HISTORY ) Menopausal: Yes : 6 Para: 4 : 2 Past Surgical History Abdominal Surgery: Yes (PART OF LARGE INTESTINE REMOVED) Coronary Artery Bypass Graft: No Hysterectomy: Yes Other Surgery: Yes (BILAT PLANTAR FASCIOTOMY; R ANKLE) Social History Alcohol Use: No Tobacco Use: No Substance Use: No Allergies-Medications (Allergen,Severity, Reaction): Coded Allergies: No Known Allergies (Unverified , 07/20/16) Comments No known drug allergies. Reported Meds & Prescriptions Reported Meds & Active Scripts Active Reported Ciprofloxacin (Ciprofloxacin HCl) 500 Mg Tab 500 Mg PO BID Selenium 200 Mcg Tab 200 Mg PO DAILY Ibuprofen 800 Mg Tab 800 Mg PO BID Chlorthalidone 25 Mg Tab 25 Mg PO BID Folate (Folic Acid) 1 Mg Tab 1 Mg PO DAILY Losartan (Losartan Potassium) 25 Mg Tab 25 Mg PO DAILY Oxycodone-Acetaminophen 10-325 mg Tab 0.5-1 Tab PO Q8HR PRN Sulfasalazine 500 Mg Tab 1,000 Mg PO BID Pravastatin 40 Mg Tab 40 Mg PO DAILY Trazodone (Trazodone HCl) 100 Mg Tab 200 Mg PO HS Omeprazole 20 Mg Tab 20 Mg PO DAILY Amlodipine (Amlodipine Besylate) 5 Mg Tab 5 Mg PO DAILY Narrative Medication List of her home medications reviewed from the nursing note. Review of Systems Except as stated in HPI: all other systems reviewed are Neg Physical Exam Narrative GENERAL: Awake, alert, obese, moderate distress SKIN: Warm and dry. HEAD: Atraumatic. Normocephalic. EYES: Pupils equal and round. No scleral icterus. No injection or drainage. ENT: No nasal bleeding or discharge. Mucous membranes pink and moist. NECK: Trachea midline. No JVD. CARDIOVASCULAR: Regular rate and rhythm. No murmur appreciated. RESPIRATORY: No accessory muscle use. Clear to auscultation. Breath sounds equal bilaterally. GASTROINTESTINAL: Abdomen soft, suprapubic and right lower quadrant tenderness, nondistended. Hepatic and splenic margins not palpable. MUSCULOSKELETAL: No obvious deformities. No clubbing. No cyanosis. No edema. NEUROLOGICAL: Awake and alert. No obvious cranial nerve deficits. Motor grossly within normal limits. Normal speech. PSYCHIATRIC: Appropriate mood and affect; insight and judgment normal. Data Data Last Documented VS Vital Signs Date Time Temp Pulse Resp B/P Pulse Ox O2 Delivery O2 Flow Rate FiO2 07/20/16 13:00 81 16 96/58 99 Room Air 07/20/16 10:52 98.2 Orders Comprehensive Metabolic Panel (07/20/16 11:05) Lipase (07/20/16 11:05) Urinalysis - C+S If Indicated (07/20/16 11:05) Ct Abd/Pel W/O Iv Contrast (07/20/16 11:05) Iv Access Insert/Monitor (07/20/16 11:05) Ecg Monitoring (07/20/16 11:05) Oximetry (07/20/16 11:05) Morphine Inj (Morphine Inj) (07/20/16 11:15) Ondansetron Inj (Zofran Inj) (07/20/16 11:15) Sodium Chloride 0.9% Flush (Ns Flush) (07/20/16 11:15) Complete Blood Count With Diff (07/20/16 11:05) Labs Laboratory Tests Test 07/20/16 07/20/16 11:15 11:25 White Blood Count 7.4 TH/MM3 Red Blood Count 4.23 MIL/MM3 Hemoglobin 11.4 GM/DL Hematocrit 35.7 % Mean Corpuscular Volume 84.4 FL Mean Corpuscular Hemoglobin 26.9 PG Mean Corpuscular Hemoglobin 31.9 % Concent Red Cell Distribution Width 15.2 % Platelet Count 192 TH/MM3 Mean Platelet Volume 8.4 FL Neutrophils (%) (Auto) 60.8 % Lymphocytes (%) (Auto) 28.7 % Monocytes (%) (Auto) 9.3 % Eosinophils (%) (Auto) 0.7 % Basophils (%) (Auto) 0.5 % Neutrophils # (Auto) 4.5 TH/MM3 Lymphocytes # (Auto) 2.1 TH/MM3 Monocytes # (Auto) 0.7 TH/MM3 Eosinophils # (Auto) 0.1 TH/MM3 Basophils # (Auto) 0.0 TH/MM3 CBC Comment DIFF FINAL Differential Comment Sodium Level 138 MEQ/L Potassium Level 4.6 MEQ/L Chloride Level 103 MEQ/L Carbon Dioxide Level 26.6 MEQ/L Anion Gap 8 MEQ/L Blood Urea Nitrogen 26 MG/DL Creatinine 0.93 MG/DL Estimat Glomerular Filtration 76 ML/MIN Rate Random Glucose 83 MG/DL Calcium Level 9.1 MG/DL Total Bilirubin 0.4 MG/DL Aspartate Amino Transf 38 U/L (AST/SGOT) Alanine Aminotransferase 27 U/L (ALT/SGPT) Alkaline Phosphatase 95 U/L Total Protein 8.2 GM/DL Albumin 3.3 GM/DL Lipase 109 U/L Urine Color YELLOW Urine Turbidity CLEAR Urine pH 6.0 Urine Specific [place] 1.021 Urine Protein NEG mg/dL Urine Glucose (UA) NEG mg/dL Urine Ketones NEG mg/dL Urine Occult Blood NEG Urine Nitrite NEG Urine Bilirubin NEG Urine Urobilinogen LESS THAN 2.0 MG/DL Urine Leukocyte Esterase NEG Urine RBC LESS THAN 1 /hpf Urine WBC LESS THAN 1 /hpf Urine Squamous Epithelial <1 /hpf Cells Urine Mucus FEW /lpf Microscopic Urinalysis Comment CULT NOT INDICATED MDM Medical Decision Making Medical Screen Exam Complete: Yes Emergency Medical Condition: Yes Medical Record Reviewed: Yes Differential Diagnosis Acute appendicitis, acute diverticulitis, abdominal pain NOS Narrative Course 12:47 PM CAT scan shows a ventral hernia with some omental fat. Rest of the CAT scan does not show any acute abnormalities. Blood test results are within normal limit. I will discharge this patient home at this point. Procedures EKG Prior to Arrival: No Diagnosis Primary Impression: Abdominal pain, unspecified site Additional Impression: Ventral hernia Qualified Code: K43.9 - Ventral hernia without obstruction or gangrene Referrals: Primary Care Physician Additional Instructions: Take medication as per the prescription direction. Please return to the ER if the condition worsens or any other new concerns. Otherwise follow-up with your primary care. Med/Other Pt SpecificInfo: No Change to Meds Disposition: DISCHARGE HOME Condition: Jeanne Coffman MD Jul 20, 2016 11:01 Med/Other Pt SpecificInfo: No Change to Meds Disposition: DISCHARGE HOME Condition: Jeanne Coffman MD Jul 20, 2016 11:01
[2016-07-20] MEDS ORDERED: MORPHINE SULFATE 4 MG/ML INJ IV PUSH ONE (11:15)
[2016-07-20] MEDS ORDERED: CIPR500T2 PO (11:15)
[2016-07-20] MEDS ORDERED: SODIUM CHLORIDE 0.9% FLUSH 5 ML FLUSH IVF PRN (11:15)
[2016-07-20] MEDS ORDERED: SELE1TAB PO (11:15)
[2016-07-20] MEDS ORDERED: ONDANSETRON HCL 4 MG/2 ML VIAL IVP ONE (11:15)
[2016-07-20 11:36] LABS: AUTOMATED NEUTROPHIL # 4.5 TH/MM3 (1.8-7.7); BASOPHIL % 0.5 % (0.0-2.0); EOSINOPHIL # 0.1 TH/MM3 (0-0.4); EOSINOPHIL % 0.7 % (0.0-4.0); HEMATOCRIT 35.7 % (35.0-46.0); HEMO FLAGS DIFF FINAL; LYMPH % 28.7 % (9.0-44.0); LYMPHOCYTE # 2.1 TH/MM3 (1.0-4.8); MEAN CELL VOLUME 84.4 FL (80.0-100.0); MEAN CORPUSCULAR HEMOGLOBIN 26.9 PG (27.0-34.0); MEAN CORPUSCULAR HGB CONC 31.9 % (32.0-36.0); MONO % 9.3 % (0.0-8.0); NEUT % 60.8 % (16.0-70.0); PLATELET COUNT 192 TH/MM3 (150-450); RED BLOOD COUNT 4.23 MIL/MM3 (4.00-5.30); RED CELL DISTRIBUTION WIDTH 15.2 % (11.6-17.2); WHITE BLOOD COUNT 7.4 TH/MM3 (4.0-11.0)
[2016-07-20 11:43] LABS: BLOOD, URINE NEG (NEG); COMMENT (UR) CULT NOT INDICATED; CULTURE IF INDICATED CULT NOT INDICATED; GLUCOSE,URINE NEG (NEG); KETONE, URINE NEG (NEG); MUCUS URINE FEW /lpf (OCC); NITRITE,URINE NEG (NEG); SQUAMOUS EPITHELIAL CELL URINE <1 /hpf (0-5); URINE COLOR YELLOW (YELLW/STRAW)
[2016-07-20 11:59] LABS: ALKALINE PHOSPHATASE 95 U/L (45-117); TOTAL BILIRUBIN ADULT 0.4 MG/DL (0.2-1.0)
[2016-07-20 12:08] LABS: ALT (GPT) 27 U/L (10-53); ANION GAP 8 MEQ/L (5-15); AST (GOT) 38 U/L (15-37); BICARBONATE 26.6 MEQ/L (21.0-32.0); BLOOD UREA NITROGEN 26 MG/DL (7-18); CHLORIDE 103 MEQ/L (98-107); GLOMERULAR FILTRATION RATE 76 ML/MIN (>89); SODIUM (NA) 138 MEQ/L (136-145)
[2016-07-20 12:09] LABS: POTASSIUM 4.6 MEQ/L (3.5-5.1)
--- NOTE | 2016-07-20 12:38 | RADRPT ---
EXAM DATE/TIME: 07/20/2016 11:23 [facility] COMPARISON: No previous studies available for comparison. INDICATIONS : Umbilical abdomen pain for two weeks. ORAL CONTRAST: No oral contrast ingested. RADIATION DOSE: 10.66 CTDIvol (mGy) MEDICAL HISTORY : Hypertension. Carcinoma, breast. SURGICAL HISTORY : Colon resection. ENCOUNTER: Initial ACUITY: 2 weeks PAIN SCALE: 6/10 LOCATION: umbilical abdomen TECHNIQUE: Volumetric scanning of the abdomen and pelvis was performed. Using automated exposure control and ad justment of the mA and/or kV according to patient size, radiation dose was kept as low as reasonably achievable to obtain optimal diagnostic quality images. FINDINGS: LOWER LUNGS: The visualized lower lungs are clear. LIVER: Homogeneous density without lesion. There is no dilation of the biliary tree. No calcified gallston es. SPLEEN: Normal size without lesion. PANCREAS: Within normal limits. KIDNEYS: Normal in size and shape. There is no mass, stone, or hydronephrosis. ADRENAL GLANDS: Within normal limits. VASCULAR: There is no aortic aneurysm. BOWEL/MESENTERY: The stomach, small bowel, and colon demonstrate no acute abnormality. There is no free intraperitone al air or fluid. Surgical clips are seen in the left upper quadrant. The patient appears be status po st partial colectomy. ABDOMINAL WALL: The patient is status post midline incision. There is a minimal midline hernia just above the umbilic us containing only mesenteric fat with defect measuring 1.2 cm. RETROPERITONEUM: There is no lymphadenopathy. BLADDER: No wall thickening or mass. REPRODUCTIVE: Patient appears to be status post hysterectomy. INGUINAL: There is no lymphadenopathy or hernia. MUSCULOSKELETAL: There some mild degenerative change of the lumbar spine. CONCLUSION: Acute abnormality is seen. The patient is status post midline abdominal incision with postoperative c hange and a small midline hernia containing mesenteric fat. The patient is status post partial colect tenzin. Allan Murrell MD on July 20, 2016 at 12:32 Board Certified Radiologist. This report was verified electronically.
[2016-07-20 13:00] VITALS: BP 96/58; PULSE 81; RESP 16; O2SAT 99
== END 2016-07-20 13:38 | disposition home or self-care (01) ==
LOC: NEPA 10:49
DX: R10.9 Unspecified abdominal pain (principal); K43.9 Ventral hernia without obstruction or gangrene; R30.0 Dysuria; I10 Essential (primary) hypertension; E78.00 Pure hypercholesterolemia, unspecified; Z87.39 Personal history of other diseases of the musculoskeletal system and connective tissue; Z85.3 Personal history of malignant neoplasm of breast; Z87.19 Personal history of other diseases of the digestive system
CPT/HCPCS: 74176; 80053; 81001; 83690; 85025; 96374; 96375; 99284; J2270; J2405